=== PATIENT | male | born 1970 | race Caucasian/White ===

== ENCOUNTER 2017-01-27 19:13 | Observation (INO) | payer OTHER ==
[2017-01-27 19:34] VITALS: BMI 22.9
--- NOTE | 2017-01-27 19:40 | ED PDOC ---
Arrival/HPI - General Time Seen by Provider: 01/27/17 19:14 Historian: Patient - History of Present Illness Narrative History of Present Illness (Text): 01/27/17 19:40 A 46 year old male, whose past medical history includes EtOH abuse, presents to the emergency department complaining of chest pain. Patient reports also experiencing an episode of vomiting earlier, possibly consisting tinge of blood and food. Patient admits to drinking earlier today. He denies of any shortness of breath, abdominal pain, diarrhea, or any other complaints. Also, according to family, patient drinks daily. PMD: Dr. Homer Kyle Past Medical History - Provider Review Nursing Documentation Reviewed: Yes Family/Social History - Physician Review Nursing Documentation Reviewed: Yes Family/Social History: No Known Family HX Allergies/Home Meds Allergies/Adverse Reactions: Allergies No Known Allergies Allergy (Verified 01/27/17 19:34) Home Medications: Home Meds Medication Instructions Recorded Confirmed No Known Home Med 01/27/17 01/27/17 Review of Systems - Physician Review All systems were reviewed & negative as marked: Yes - Review of Systems Respiratory: absent: SOB Cardiovascular: Chest Pain Gastrointestinal: Vomiting (episode earlier with tinge of blood and food). absent: Abdominal Pain, Diarrhea Physical Exam Vital Signs Temp Pulse Resp BP Pulse Ox 01/27/17 19:30 98.0 F 107 H 20 156/90 H 99 Pain Distress: None (no acute distress) Mental Status: Positive for: Alert and Oriented X 3 - Systems Exam Head: Present: Atraumatic, Normocephalic Pupils: Present: PERRL Extroacular Muscles: Present: EOMI Conjunctiva: Present: Normal Mouth: Present: Moist Mucous Membranes Neck: Present: Normal Range of Motion Respiratory/Chest: Present: Clear to Auscultation, Good Air Exchange. No: Respiratory Distress, Accessory Muscle Use Cardiovascular: Present: Regular Rate and Rhythm, Normal S1, S2. No: Murmurs Abdomen: Present: Normal Bowel Sounds. No: Tenderness, Distention, Peritoneal Signs Back: Present: Normal Inspection Upper Extremity: Present: Normal Inspection. No: Cyanosis, Edema Lower Extremity: Present: Normal Inspection. No: Edema Neurological: Present: GCS=15, CN II-XII Intact, Speech Normal Skin: Present: Warm, Dry, Normal Color. No: Rashes Psychiatric: Present: Alert, Oriented x 3, Normal Insight, Normal Concentration Medical Decision Making ED Course and Treatment: 01/27/17 19:43 Impression: 46 year old male with chest pain. Physical exam benign. Plan: -- EKG -- Chest X-ray -- Labs -- Nasal Cannula -- Reassess and disposition Progress Notes: EKG: Ordered, reviewed, and independently interpreted the EKG. Rate : 99 BPM Rhythm : NSR Interpretation : No ST-segment elevations or depressions, no T-wave inversions, normal intervals. Comparison : No previous EKG for comparison. 01/27/17 21:34 Chest X-ray is negative. - Lab Interpretations Lab Results: 01/27/17 19:30 01/27/17 19:30 Lab Results 01/27/17 20:00: Alcohol, Quantitative 299 H 01/27/17 19:30: Sodium 143, Potassium 4.2, Chloride 98, Carbon Dioxide 22, Anion Gap 27 H, BUN 16, Creatinine 0.8, Est GFR ( Amer) > 60, Est GFR ( Non-Af Amer) > 60, Random Glucose 114 H, Calcium 8.9, Total Bilirubin 0.4, AST 51, ALT 48, Alkaline Phosphatase 88, Lactate Dehydrogenase 477, Total Creatine Kinase 67, Troponin I < 0.01, Total Protein 8.3, Albumin 4.8, Globulin 3.5, Albumin/Globulin Ratio 1.4, Lipase 113 01/27/17 19:30: PT 10.2, INR 0.94, APTT 24.9 01/27/17 19:30: WBC 10.5, RBC 5.43, Hgb 15.3, Hct 44.3, MCV 81.6, MCH 28.2, MCHC 34.5, RDW 13.3, Plt Count 333, MPV 9.3, Gran % 70.5 H, Lymph % (Auto) 22.9 , Childress % (Auto) 6.5 H, Eos % (Auto) 0.0 L, Baso % (Auto) 0.1, Gran # 7.37 H, Lymph # 2.4, Childress # 0.7 H, Eos # 0.0, Baso # 0.01 - RAD Interpretation Radiology Orders: 01/27/17 19:50 CHEST PORTABLE [RAD] Stat - Medication Orders Current Medication Orders: Discontinued Medications Famotidine (Pepcid) 20 mg IVP STAT STA Stop: 01/27/17 19:52 Last Admin: 01/27/17 20:09 Dose: 20 mg IVP Administration Document 01/27/17 20:09 SC (Rec: 01/27/17 20:09 SC [id number]) Charges for Administration # of IVP Administrations 1 Morphine Sulfate (Morphine) 2 mg IVP STAT STA Stop: 01/27/17 21:40 Last Admin: 01/27/17 22:00 Dose: 2 mg MAR Pain Assessment Document 01/27/17 22:00 SC (Rec: 01/27/17 22:00 SC [id number]) Pain Reassessment Is this a pain reassessment? Yes Sleep Is patient sleeping during reassessment? No Presence of Pain Presence of Pain Yes Pain Scale Used Pain Scale Used Numeric Location Pain Location Body Site Chest Description Description Constant Intensity of Pain at present 6 IVP Administration Document 01/27/17 22:00 SC (Rec: 01/27/17 22:00 SC [id number]) Charges for Administration # of IVP Administrations 1 Nitroglycerin (Nitro-Bid 2% Oint) 1 ea TOP ONCE STA Stop: 01/27/17 21:59 Ondansetron HCl (Zofran Inj) 4 mg IVP ONCE ONE Stop: 01/27/17 21:51 Last Admin: 01/27/17 22:00 Dose: 4 mg IVP Administration Document 01/27/17 22:00 SC (Rec: 01/27/17 22:00 SC [id number]) Charges for Administration # of IVP Administrations 1 - Scribe Statement The provider has reviewed the documentation as recorded by the Shade Johnson Provider Scribe Attestation: All medical record entries made by the Scribcandelaria were at my direction and personally dictated by me. I have reviewed the chart and agree that the record accurately reflects my personal performance of the history, physical exam, medical decision making, and the department course for this patient. I have also personally directed, reviewed, and agree with the discharge instructions and disposition. Disposition/Present on Arrival - Present on Arrival Any Indicators Present on Arrival: No History of DVT/PE: No History of Uncontrolled Diabetes: No Urinary Catheter: No History of Decub. Ulcer: No History Surgical Site Infection Following: None - Disposition Have Diagnosis and Disposition been Completed?: Yes Diagnosis: Chest pain, Alcohol intoxication Disposition: HOSPITALIZED Disposition Time: 22:05 Patient Plan: Observation Condition: STABLE Discharge Instructions (ExitCare): Chest Pain (ED) Referrals: Homer Kyle MD [Primary Care Provider] - Follow up with primary
[2017-01-27 20:03] LABS: BASO # 0.01 K/mm3 (0.0-2.0); BASO % 0.1 % (0.0-3.0); GRAN # 7.37 (1.4-6.5); GRAN % 70.5 % (50.0-68.0); HEMATOCRIT 44.3 % (42.0-52.0); LYMPH # 2.4 (1.2-3.4); LYMPH % 22.9 % (22.0-35.0); MEAN CELL VOLUME 81.6 fl (80.0-105.0); MEAN CORPUSCULAR HEMOGLOBIN 28.2 pg (25.0-35.0); MEAN CORPUSCULAR HGB CONC 34.5 g/dl (31.0-37.0); MEAN PLATELET VOLUME 9.3 fl (7.0-11.0); MONO # 0.7 (0.1-0.6); MONO % 6.5 % (1.0-6.0); RED CELL DISTRIBUTION WIDTH 13.3 % (11.5-14.5); WHITE BLOOD COUNT 10.5 10^3/ul (4.5-11.0)
[2017-01-27 20:14] LABS: INR 0.94 (0.93-1.08); PARTIAL THROMBOPLASTIN TIME 24.9 Seconds (23.7-30.8)
[2017-01-27 20:15] LABS: ALB/GLOB RATIO 1.4 (1.1-1.8); ALKALINE PHOSPHATASE 88 U/L (38-126); ALT/SGPT 48 U/L (7-56); AST/SGOT 51 U/L (17-59); BILIRUBIN,TOTAL 0.4 mg/dL (0.2-1.3); BLOOD UREA NITROGEN 16 mg/dL (7-21); CALCIUM 8.9 mg/dL (8.4-10.5); CARBON DIOXIDE 22 mmol/L (21-33); CHLORIDE 98 mmol/L (98-107); GFR AFRICAN-AMERICAN > 60; GLUCOSE,RANDOM 114 mg/dL (70-110); LIPASE 113 U/L (23-300); POTASSIUM 4.2 mmol/L (3.6-5.0); SODIUM 143 mmol/L (132-148); TOTAL PROTEIN 8.3 g/dL (5.8-8.3)
[2017-01-27 20:28] LABS: TROPONIN I < 0.01 ng/mL
[2017-01-27] MEDS ORDERED: Morphine 2 mg/ml ISec IVP STA (21:39)
[2017-01-27] MEDS ORDERED: Nitroglycerin 2% Ointment Foilpak UD TOP STA (21:58)
[2017-01-28] MEDS: Folic Acid 1 MG, Thiamine 100 MG, Multivitamin (MVI) 10 ML in Dextrose 5% In Water 1,00... IV SCH ×3 (02:25→14:44)
[2017-01-28 04:36] LABS: TROPONIN I < 0.01 ng/mL
--- NOTE | 2017-01-28 08:10 | RAD ---
HISTORY: chest pain COMPARISON: None available. FINDINGS: LUNGS: No active pulmonary disease. PLEURA: No significant pleural effusion identified, no pneumothorax apparent. CARDIOVASCULAR: Normal. OSSEOUS STRUCTURES: No significant abnormalities. VISUALIZED UPPER ABDOMEN: Normal. OTHER FINDINGS: None. IMPRESSION: No acute cardiopulmonary disease appreciated.
[2017-01-28] MEDS ORDERED: Albuterol-Ipratrop 3 mg / 0.5 (3 ml) UD IH PRN (08:45)
[2017-01-28] MEDS: Benzocaine/Menthol (Cepacol) Lozenge MT PRN ×2 (09:31→17:33)
[2017-01-28] MEDS: cefTRIAXone 1 gm 1 GM/100 ML BAG IVPB SCH (09:31)
[2017-01-28 11:48] LABS: CHOLESTEROL 227 mg/dL (130-200); PHOSPHOROUS 2.2 mg/dL (2.5-4.5)
[2017-01-28 12:05] LABS: TROPONIN I < 0.01 ng/mL
--- NOTE | 2017-01-28 12:31 | CARD ---
APPROVED REPORT EKG Measurement Heart [id number] <Conclusion> Normal sinus rhythm Normal ECG
[2017-01-28] MEDS: Potassium & Sodium Phosphate PO SCH ×2 (14:48→17:31)
--- NOTE | 2017-01-28 19:20 | PN ---
REASON FOR THE CONSULTATION: Chest pain after vomiting, history of EtOH abuse, admitted with alcoholic intoxication. 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 He used to drink heavy and he drank yesterday heavy. Blood alcohol level 300, since started vomiting and developed abdominal pain associated with chest pain on vomiting. Denies any chest pain, dyspnea on exertion. Denies any history of coronary artery disease in the past. PAST MEDICAL HISTORY: Nothing significant. SOCIAL HISTORY: Denies any history of smoking, but history of alcohol abuse. FAMILY HISTORY: Noncontributory. No history of coronary artery disease. CURRENT MEDICATIONS: None. REVIEW OF SYSTEMS: As per HPI. PHYSICAL EXAMINATION: VITAL SIGNS: As follows; temperature afebrile, heart rate 106, blood pressure 135/82. HEENT: PERRLA. Extraocular muscle is intact. NECK: Supple. No carotid bruit. No thyromegaly. CHEST: Clear to auscultation. HEART: S1 and S2 regular. ABDOMEN: Soft. Mild tenderness in left upper quadrant noted under the rib. EXTREMITIES: Clubbing and cyanosis negative. DIAGNOSTIC DATA: EKG showed normal sinus rate of [address]-T changes noted. LABORATORY DATA: Blood workup as follows; WBC 11.9, hemoglobin 15.3, hematocrit 44.3, and platelet count 333. Chemistry showed sodium 146, potassium 4.2, chloride 90, carbon dioxide 20, anion gap of 27, BUN 16, creatinine 0.8, magnesium 2, phosphorous 2.2. Troponin 0.01. TSH is 1.0. Blood alcohol level on admission was 299. IMPRESSION: Acute alcoholic intoxication, chest pain, no evidence of acute myocardial infarction. EKG reported benign, no evidence of acute myocardial infarction. RECOMMENDATIONS: We will add third sets of troponin. If third set of troponin remains negative, we will discontinue telemetry. We will get the lipid profile, TSH and hemoglobin A1c. We will also schedule magnesium and phosphorous level, if it is elevated, we will supplement. Thank you Dr. Fernandez for providing me the opportunity in taking care of the patient. Lloyd Crabtree MD
[2017-01-28] MEDS: Sucralfate 1 gm/10 ml Oral Susp UD PO SCH (21:20)
--- NOTE | 2017-01-28 21:37 | CON ---
PULMONARY CONSULTATION DATE: 01/28/2017 REFERRING PHYSICIAN: Yen Fernandez MD REASON FOR CONSULTATION: Chest pain. HISTORY OF PRESENT ILLNESS: This is a 46-year-old gentleman, past medical history include excessive alcohol use, comes in with a chest pain, epigastric pain, also has a dry cough. Denies any dysuria. No leg pain or leg swelling. PAST MEDICAL HISTORY: Significant for excessive alcohol use. No heart disease. No lung disease. No kidney disease. No dysuria. No diarrhea. No leg pain or leg swelling. ALLERGIES: NONE KNOWN. SOCIAL HISTORY: Denies any smoking. Admits to drink whisky on a daily basis. MEDICATIONS: Presently he is on Ativan 1 mg q. 6 hours p.r.n., Cepacol lozenges q. 2 hours p.r.n., albuterol/Atrovent nebulizer q. 6 hours p.r.n., getting a banana bag 30 mL/hour, K-Phos one pack three times a day, Pepcid 20 mg daily, Rocephin 1 g IV daily, Tylenol p.r.n. basis, and Zofran p.r.n. basis. REVIEW OF SYSTEMS: No headache. No rhinitis, does have some dry cough, chest pain, and epigastric pain. Abdominal discomfort. No dysuria. No leg pain or leg swelling. PHYSICAL EXAMINATION: GENERAL: Lying in the bed, in no acute distress. VITAL SIGNS: Temperature is 99, heart rate is 105, respiratory rate is 20, blood pressure is 135/82, and pulse ox is 95% on room air. HEENT: Moist mucous membranes. Crowded airway. NECK: Supple. No JVD. LUNGS: Fair airflow. HEART: S1 and S2. ABDOMEN: Positive epigastric tenderness. EXTREMITIES: There is no edema. NEUROLOGIC: Awake and alert. Follows simple commands. LABORATORY DATA: Shows hemoglobin 15.3, hematocrit 44.3, WBC 10.5, and platelet is 333. INR 0.94. Sodium 143, potassium 4.2, chloride 90, bicarbonate 22, BUN 16, creatinine 0.8, and glucose 104. Hemoglobin A1c 5.4. Calcium 8.9, phosphorous 2.2, and magnesium 2.0. LDH is 302. Troponin less than 0.01. Cholesterol 227 and TSH 1.03. IMPRESSION AND PLAN: Alcohol abuse, probably has gastritis, esophagitis, and gastroesophageal reflux disease. Cough may be related to gastroesophageal reflux disease. For now, continue IV fluids, banana bag, Ativan p.r.n., proton inhibitor, SCD to lower extremities. Alcohol withdrawal precautions. Followup labs in the morning. The patient has to stop alcohol use. Thank you and we will follow. Lloyd Varela MD
--- NOTE | 2017-01-28 23:34 | HP ---
CHIEF COMPLAINT: Chest pain, shortness of breath. HISTORY OF PRESENT ILLNESS: Mr. Dante Cook is a 46 years old male with past medical history of ethanol abuse, came to the emergency room department complaining of chest pain. The patient reports that he also experiences episode of vomiting, possibly consistent of tinge of blood and food. The patient admits to drinking earlier on the day of admission. He denies any fever, chills, diarrhea, abdominal pain, chest pain and according to the patient, he drinks everyday. PAST MEDICAL HISTORY: Nonsignificant. ALLERGIES: NOT ALLERGIC WITH ANY MEDICATION. FAMILY HISTORY: Father and mother noncontributory. HABITS: No smoking, no drugs, but drinks. HOME MEDICATIONS: Does not remember. REVIEW OF SYSTEMS: Complaining about chest pain, vomiting, may be blood in the vomiting. No abdominal pain,no diarrhea. No headache. No dizziness. No fever. No chills. PHYSICAL EXAMINATION: VITAL SIGNS: Temperature 98, pulse 107, respiratory rate 20, blood pressure 156/90, pulse oxymetry is 99. HEENT: Head is normocephalic, atraumatic. Eyes, PERRLA. Extraocular muscles intact. Conjunctivae clear. Nose patent. Mucous membranes moist. NECK: Supple. No carotid bruits. No JVD or thyromegaly. CHEST: Bilaterally symmetrical. HEART: S1 and S2 positive. LUNGS: Clear to auscultation. ABDOMEN: Soft. Bowel sounds positive. No organomegaly. EXTREMITIES: No edema. No cyanosis. NEUROLOGIC: The patient is awake, alert. Moving all four extremities. No focal deficit. LABORATORY DATA: White blood cells 7.5, hemoglobin 15.3, hematocrit 44.3, platelets 333. Sodium 143, potassium 4.2, BUN 15, creatinine 0.8, glucose 114. ASSESSMENT AND PLAN: Mr. Dante Cook is a 46 years old male with a history of ethanol abuse, but may be had the gastritis, esophagitis, gastroesophageal reflux disease, came with chest pain, shortness of breath. We started the patient with banana bag, Ativan, proton pump inhibitors, sequential compression device to lower extremities, alcohol withdrawal precautions, seizure precautions, fall precautions, urged to quit alcohol. Review Dr. Varela and Dr. Crabtree notes. Actually came with acute alcohol intoxication. According to tapeman, no evidence of acute myocardial infarction. Electrocardiogram report benign. No evidence of acute myocardial infarction. We will do 3 sets of troponin. If troponin remains negative as per cardiology, discontinue the telemetry. We will get fasting lipid profile, thyroid-stimulating hormone, and hemoglobin A1c. We will fix the left leg to balance. three sets of troponin is negative. That is why, telemetry was discontinued. The patient has hypercholesterolemia, 227. We will add some Lipitor. We will do hemoglobin A1c because of hyperglycemia, hypophosphatemia. We will replace that. According to the patient, there was little blood in the vomitus also. We will call gastroenterology consult. We will follow up. Yen Fernandez MD MTDD
[2017-01-29] MEDS: Benzocaine/Menthol (Cepacol) Lozenge MT PRN ×2 (06:56→21:36)
[2017-01-29] MEDS: Sucralfate 1 gm/10 ml Oral Susp UD PO SCH ×3 (06:56→17:01)
[2017-01-29] MEDS: cefTRIAXone 1 gm 1 GM/100 ML BAG IVPB SCH (09:53)
[2017-01-29] MEDS: Potassium & Sodium Phosphate PO SCH ×3 (09:54→17:01)
--- NOTE | 2017-01-29 10:34 | PN ---
DATE: 01/29/2017 LOCATION: The patient is in room 570, bed 1. REASON FOR CONSULTATION: Chest pain after vomiting, history of ethanol abuse, and alcohol intoxication. SUBJECTIVE: The patient is lying flat in bed without any respiratory distress. He says that when he coughs, he gets sharp pain, otherwise he has no chest pain. Denies shortness of breath, or palpitations. PHYSICAL EXAMINATION VITAL SIGNS: Blood pressure 132/85, respirations 20, pulse 81, and temperature 98.5. HEENT: Head is normocephalic. Eyes; pupil normal and conjunctivae are normal. Nose and throat are normal. NECK: JVP low and carotids are equal. Thorax AP diameter is normal. LUNGS: No rales. CARDIOVASCULAR: S1 and S2. ABDOMEN: Soft and nontender. No organomegaly. EXTREMITIES: No clubbing and no cyanosis. LABORATORY DATA: Alcohol level on admission was 299. WBC 10.5, hemoglobin 13.3, hematocrit 44.3, and platelets 333. Sodium is 143, potassium 4.2, BUN 16, and creatinine 0.8. Troponin x3 is less than 0.01. TSH 1.03, cholesterol 227, triglycerides 149, and HDL 71. DIAGNOSES: Acute alcoholic intoxication, chest pain with cough. PLAN: The patient has no evidence of acute coronary syndrome or any anginal symptom. The patient has no history of any anginal symptoms in the past. Phosphorus level 2.2. We will give K-Phos. We will continue present therapy. We will follow with you. Lloyd Mtz MD
--- NOTE | 2017-01-29 12:10 | CP.PCM.CON ---
<Candace Holliday - Last Filed: 01/29/17 17:09> History of Present Illness - History of Present Illness History of Present Illness: Patient was seen and examined earlier today at the bedside. Chart was reviewed. Request for GI consult is for vomiting blood. HPI: This is a 46-year-old male with a past medical history of ethanol abuse came to the emergency room with complaints of chest pain. The patient also reports vomiting and noted that it was blood-tinged. Patient currently complains of sore throat and coughing. He has not had any episode of hematemesis. Patient denies any previous history of hematemesis. He reports that he has been drinking daily at least 1 pint of whiskey for the past year. Denies any heartburn, shortness of breath or chest pain. The patient reports regular bowel movements, denies any melena or bright red blood per rectum. Denies any anorexia or weight loss. Had endoscopy or colonoscopy. On admission he had cardiac enzymes which were negative3. He did have a chest x- ray as well which was negative for any acute findings. He does report of postprandial nausea, had episode after breakfast, but no vomiting. Past medical history:ethanol abuse, Patient denies any cardiac, pulmonary, or pertinent history Surgical history: Surgery, hemorrhoidectomy Family history: Denies Social history: consumes whiskey daily for the past year, he did stop 2 or 3 years ago. Denies tobacco use or substance abuse Allergies: No known drug allergies Medications: Medications reviewed as per CONNIE ROS: Systems review. Positive findings see HPI. Past Patient History - Past Social History Smoking Status: Never Smoked - CARDIAC Hx Cardiac Disorders: No - PULMONARY Hx Respiratory Disorders: No - NEUROLOGICAL Hx Neurological Disorder: Yes Hx Dizziness: No - HEENT Hx HEENT Problems: Yes Other/Comment: reading glasses - RENAL Hx Chronic Kidney Disease: No - ENDOCRINE/METABOLIC Hx Endocrine Disorders: No - HEMATOLOGICAL/ONCOLOGICAL Hx Blood Disorders: No - INTEGUMENTARY Hx Dermatological Problems: No - MUSCULOSKELETAL/RHEUMATOLOGICAL Hx Musculoskeletal Disorders: Yes Hx Back Pain: Yes Hx Falls: No Other/Comment: back surgery 10 yrs ago - GASTROINTESTINAL Hx Gastrointestinal Disorders: Yes Other/Comment: nausea/vomiting in past day - GENITOURINARY/GYNECOLOGICAL Hx Genitourinary Disorders: No - PSYCHIATRIC Hx Psychophysiologic Disorder: No Hx Substance Use: No - SURGICAL HISTORY Hx Surgeries: Yes Other/Comment: back surgery; hemorrhoid surgery Meds Allergies/Adverse Reactions: Allergies Allergy/AdvReac Type Severity Reaction Status Date / Time No Known Allergies Allergy Verified 01/27/17 19:34 - Medications Medications: Current Medications Acetaminophen (Tylenol 325mg Tab) 650 mg PO Q6H PRN PRN Reason: Pain Last Admin: 01/28/17 17:33 Dose: 650 mg Albuterol/Ipratropium (Duoneb 3 Mg/0.5 Mg (3 Ml) Ud) 3 ml IH [id number] PRN PRN Reason: Shortness of Breath Last Admin: 01/28/17 08:58 Dose: 3 ml Atorvastatin Calcium (Lipitor) 10 mg PO DIN [facility] Benzocaine/Menthol (Cepacol Sore Throat) 1 clover MT Q2H PRN PRN Reason: Sore Throat Last Admin: 01/29/17 06:56 Dose: 1 clover Folic Acid 1 mg/ Thiamine HCl 100 mg/ Multivitamins/Vitamin C 10 ml/ Dextrose 1 ,011.2 mls @ 100 mls/hr IV .Q10H7M [facility] Last Admin: 01/28/17 14:44 Dose: 100 mls/hr Ceftriaxone Sodium (Rocephin 1 Gram Ivpb) 1 gm in 100 mls @ 100 mls/hr IVPB DAILY [facility] PRN Reason: Protocol Last Admin: 01/29/17 09:53 Dose: 100 mls/hr Lorazepam (Ativan) 1 mg IVP Q6 PRN; Protocol PRN Reason: Agitation Last Admin: 01/28/17 18:57 Dose: 1 mg Ondansetron HCl (Zofran Inj) 4 mg IVP Q6 PRN PRN Reason: Nausea/Vomiting Pantoprazole Sodium (Protonix Inj) 40 mg IVP DAILY [facility] Last Admin: 01/29/17 10:47 Dose: 40 mg Potassium Phos/Sodium Phos (Neutra-Phos) 1 pkt PO TID [facility] Stop: 01/29/17 23:00 Last Admin: 01/29/17 09:54 Dose: 1 pkt Sucralfate (Carafate Oral Susp) 1 gm PO 0630,1130,1630,2200 [facility] Last Admin: 01/29/17 10:48 Dose: 1 gm Physical Exam - Constitutional Appears: No Acute Distress - Head Exam Head Exam: NORMOCEPHALIC - Eye Exam Eye Exam: Normal appearance. absent: Scleral icterus - ENT Exam ENT Exam: Mucous Membranes Moist - Neck Exam Neck exam: Positive for: Normal Inspection - Respiratory Exam Respiratory Exam: Clear to Auscultation Bilateral, NORMAL BREATHING PATTERN. absent: Respiratory Distress - Cardiovascular Exam Cardiovascular Exam: +S1, +S2 - GI/Abdominal Exam GI & Abdominal Exam: Soft, Tenderness (epigastric). absent: Distended, Guarding , Normal Bowel Sounds, Rebound - Extremities Exam Extremities exam: Positive for: pedal pulses present. Negative for: calf tenderness, pedal edema - Neurological Exam Neurological exam: Alert, CN II-XII Intact, Oriented x3 - Skin Skin Exam: Dry, Warm Results - Vital Signs Recent Vital Signs: Last Vital Signs Temp 98.5 F 01/29/17 08:00 Pulse 81 01/29/17 08:00 Resp 20 01/29/17 08:00 BP 132/85 01/29/17 08:00 Pulse Ox 97 01/29/17 08:00 - Labs Result Diagrams: 01/27/17 19:30 01/27/17 19:30 Assessment & Plan - Assessment and Plan (Free Text) Assessment: ASSESSMENT: Hematemesis, differential to consider PUD, Gastritis Chest Pain Coughing Ethanol Abuse, Alcohol Quant >200 PLAN: clear liquid on IVF, w/ MVI start Protonix Ativan prn agitation monitor H/H, overt GI bleeding monitor for alcohol withdrawal Would benefit from EGD, plan for 01/30/17 On Carafate on Ceftriaxone labs in am cbc,cmp Thank you for this consult and for allowing us to participate in your patient care, will make further recommendaiton based upon clinical course. Seen and discussed with Dr. Welsh. <Branden Welsh V - Last Filed: 01/29/17 20:00> Meds - Medications Medications: Current Medications Acetaminophen (Tylenol 325mg Tab) 650 mg PO Q6H PRN PRN Reason: Pain Last Admin: 01/28/17 17:33 Dose: 650 mg Albuterol/Ipratropium (Duoneb 3 Mg/0.5 Mg (3 Ml) Ud) 3 ml IH [id number] PRN PRN Reason: Shortness of Breath Last Admin: 01/28/17 08:58 Dose: 3 ml Atorvastatin Calcium (Lipitor) 10 mg PO DIN [facility] Last Admin: 01/29/17 16:29 Dose: Not Given Benzocaine/Menthol (Cepacol Sore Throat) 1 clover MT Q2H PRN PRN Reason: Sore Throat Last Admin: 01/29/17 06:56 Dose: 1 clover Folic Acid 1 mg/ Thiamine HCl 100 mg/ Multivitamins/Vitamin C 10 ml/ Dextrose 1 ,011.2 mls @ 100 mls/hr IV .Q10H7M [facility] Last Admin: 01/29/17 13:00 Dose: 100 mls/hr Ceftriaxone Sodium (Rocephin 1 Gram Ivpb) 1 gm in 100 mls @ 100 mls/hr IVPB DAILY [facility] PRN Reason: Protocol Last Admin: 01/29/17 09:53 Dose: 100 mls/hr Lorazepam (Ativan) 1 mg IVP Q6 PRN; Protocol PRN Reason: Agitation Last Admin: 01/28/17 18:57 Dose: 1 mg Ondansetron HCl (Zofran Inj) 4 mg IVP Q6 PRN PRN Reason: Nausea/Vomiting Pantoprazole Sodium (Protonix Inj) 40 mg IVP DAILY [facility] Last Admin: 01/29/17 10:47 Dose: 40 mg Potassium Phos/Sodium Phos (Neutra-Phos) 1 pkt PO TID [facility] Stop: 01/29/17 23:00 Last Admin: 01/29/17 17:01 Dose: 1 pkt Sucralfate (Carafate Oral Susp) 1 gm PO 0630,1130,1630,2200 [facility] Last Admin: 01/29/17 17:01 Dose: 1 gm Zolpidem Tartrate (Ambien) 10 mg PO HS PRN; Protocol PRN Reason: Insomnia Results - Vital Signs Recent Vital Signs: Last Vital Signs Temp 98.7 F 01/29/17 16:00 Pulse 70 01/29/17 16:00 Resp 18 01/29/17 16:00 BP 131/88 01/29/17 16:00 Pulse Ox 98 01/29/17 16:00 - Labs Result Diagrams: 01/27/17 19:30 01/27/17 19:30 Attending/Attestation - Attestation Notes (Text): This is an addendum to GI consult report dictated by Candace Holliday APN.The patient was seen and examined earlier. Medical records, lab studies, imagings were reviewed. Last 24 hours events reviewed. Agreed with the above treatment plan as outlined in Candace Holliday APN's notes the with the addition of the following on examination abdomen soft no tenderness No further episodes of hematemesis The differential diagnoses should include a Haley-Martínez tear, esophagitis, peptic disease, We'll DC the Carafate as it can interfere with endoscopy evaluation Follow-up hemoglobin hematocrit Continue PPI Scheduled for an EGD tomorrow Strongly discouraged him about alcohol 01/29/17 19:57
[2017-01-29] MEDS: Folic Acid 1 MG, Thiamine 100 MG, Multivitamin (MVI) 10 ML in Dextrose 5% In Water 1,00... IV SCH (13:00)
[2017-01-30] MEDS: Folic Acid 1 MG, Thiamine 100 MG, Multivitamin (MVI) 10 ML in Dextrose 5% In Water 1,00... IV SCH ×3 (01:15→18:08)
--- NOTE | 2017-01-30 02:27 | PN ---
PULMONARY PROGRESS NOTE DATE: 01/29/2017 REFERRING PHYSICIAN: Yen Fernandez MD SUBJECTIVE: Subjectively, the patient is sitting side of the bed, having clear liquid diet. Overall feels better. Still have some cough. No chest pain. Still have abdominal discomfort. No nausea. No dysuria, leg pain or leg swelling. PHYSICAL EXAMINATION: GENERAL: In no acute distress. VITAL SIGNS: Temperature is 98, heart rate is 70, respiratory rate is 20, blood pressure 131/88, and pulse ox 98% on room air. HEENT: Moist mucous membranes. Crowded airway. NECK: Supple. No JVD. LUNGS: Has a fair airflow with few rhonchi. HEART: S1 and S2. ABDOMEN: Positive epigastric tenderness. EXTREMITIES: No edema. NEUROLOGIC: Awake and alert. Follows simple commands. MEDICATIONS: He is on Ambien 10 mg at bedtime p.r.n., Ativan 1 mg q. 6 hours p.r.n., Cepacol lozenges q. 2 hours p.r.n., DuoNeb q. 6 hours, getting folic acid, thiamine, multivitamin, vitamin C, banana bag 100 mL/hour, Lipitor 10 mg daily, Neutra-Phos 1 pack 3 times a day, Protonix 40 mg daily, Rocephin 1 g daily, Tylenol p.r.n., and Zofran p.r.n. LABORATORY DATA: Reviewed. No new lab is available since yesterday. IMPRESSION AND PLAN: Alcohol abuse with gastritis and esophagitis, also probably have a gastroesophageal reflux disease, related cough, need to rule out sleep apnea. Pulmonary point of view, doing okay. Continue present care, IV fluids, proton inhibitor, seen by GI. The patient is to stop smoking also urged to stop alcohol. Outpatient may need sleep study. Thank you and we will follow with you. Lloyd Varela MD
--- NOTE | 2017-01-30 06:05 | CARD ---
APPROVED REPORT EXAM: Two-dimensional and M-mode echocardiogram with Doppler and color Doppler. INDICATION Chest Pain 2D DIMENSIONS Left Atrium (2D)3.4 (1.6-4.0cm)IVSd1.3 (0.7-1.1cm) LVDd4.2 (3.9-5.9cm)PWd1.1 (0.7-1.1cm) LVDs2.8 (2.5-4.0cm)FS (%) 32.9 % LVEF (%)61.8 (>50%) M-Mode DIMENSIONS Aortic Root3.00 (2.2-3.7cm)Aortic Cusp Exc.1.90 (1.5-2.0cm) Aortic Valve AoV Peak Qxkpejtz733.0cm/Jonn Peak GR.6mmHg Mitral Valve MV E Ewyhlmnk03.3cm/sMV A Iamqxgrw12.5cm/sE/A ratio0.8 TDI E/Lateral E'0.0E/Medial E'0.0 Tricuspid Valve TR Peak Wqyajppx990sr/sRAP [id number] Peak Gr.9mmHg [id number] LEFT VENTRICLE The left ventricle is normal size. There is mild asymmetric left ventricular hypertrophy. The left ventricular function is normal.EF55-60% There is normal LV segmental wall motion. Transmitral Doppler flow pattern is Grade III-reversible restrictive diastolic dysfunction. No left ventricle thrombus noted on this study. There is no ventricular septal defect visualized. There is no left ventricular aneurysm. There is no mass noted in the left ventricle. RIGHT VENTRICLE The right ventricle is normal size. There is normal right ventricular wall thickness. The right ventricular systolic function is normal. ATRIA The left atrium size is normal. The right atrium size is normal. The interatrial septum is intact with no evidence for an atrial septal defect. AORTIC VALVE The aortic valve is normal in structure. No aortic regurgitation is present. There is no aortic valvular stenosis. There is no aortic valvular vegetation. MITRAL VALVE The mitral valve is normal in structure. There is no mitral valve regurgitation noted. There is no mitral valve stenosis. There is no evidence of mitral valve prolapse. TRICUSPID VALVE The tricuspid valve is normal in structure. There is no tricuspid valve regurgitation noted.RVSP-19 mmof hg There is no tricuspid valve stenosis. There is no tricuspid valve prolapse or vegetation. PULMONIC VALVE The pulmonary valve is normal in structure. There is no pulmonic valvular regurgitation. There is no pulmonic valvular stenosis. GREAT VESSELS The aortic root is normal in size. The ascending aorta is normal in size. The pulmonary artery is normal. The IVC is normal in size and collapses >50% with inspiration. PERICARDIAL EFFUSION There is no pleural effusion. There is no pericardial effusion. <Conclusion> Normal chamber Size. Ef-55-60% Trace Tr. RVSP_19 mmof hg The IVC is normal in size and collapses >50% with inspiration. The IVC is normal in size and collapses >50% with inspiration. There is no pericardial effusion.
--- NOTE | 2017-01-30 06:17 | PN ---
SUBJECTIVE: The patient is a 46 years old male. The patient is seen and examined on the bedside. Looking comfortable. Still having sore throat. Still coughing. According to the patient, he cannot sleep last night, was requesting sleeping medication. No nausea, vomiting, or diarrhea. No chest pain or palpitations. No more episodes of vomiting. PHYSICAL EXAMINATION: VITAL SIGNS: Temperature 98.7, pulse 70, blood pressure 130/88, and respiratory rate 18. HEENT: Head, normocephalic, and atraumatic. Eyes, PERRLA. Extraocular muscles intact. Conjunctivae clear. Nose patent. NECK: Supple. No carotid bruits. No JVD or thyromegaly. CHEST: Bilaterally symmetrical. HEART: S1 and S2 positive. LUNGS: Clear to auscultation. ABDOMEN: Soft. Bowel sounds positive. No organomegaly. EXTREMITIES: No edema. No cyanosis. NEUROLOGICAL: The patient is awake and alert. Moving all 4 extremities. No focal deficits. MEDICATIONS: Ambien, Ativan, Cepacol lozenges, DuoNeb, multivitamin, Lipitor, Neutra-Phos, Protonix, Rocephin, Tylenol, and Zofran. LABORATORY DATA: We do not have recent labs today, but I reviewed old labs. ASSESSMENT AND PLAN: Mr. Dante Cook is a 46 years old male with hyperglycemia, hypophosphatemia, hypercholesterolemia, came with alcohol level of 299, almost 300, with alcohol intoxication with episode of nausea and vomiting with blood. Seen by Gastroenterology, JOHNNA Thomas. History of ethanol abuse, history of hematemesis, rule out peptic ulcer disease, and gastritis. The patient is on clear liquid, intravenous fluid, multivitamin infusion, getting Protonix, and Ativan p.r.n. for agitation, monitoring hemoglobin and hematocrit. Admitted for overt gastrointestinal bleeding , for alcohol withdrawals. Would benefit from esophagogastroduodenoscopy. Plan is to do esophagogastroduodenoscopy on 01/30/2017, on Carafate and ceftriaxone. 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 Dr. Welsh discontinued the Carafate as it interferes with the endoscopic evaluation. He is scheduled esophagogastroduodenoscopy for tomorrow. Agreed to quit alcohol. Pharyngitis and coughing, getting antibiotics. According to Dr. Mtz, there is no evidence of acute coronary syndrome or any anginal symptoms. Hypophosphatemia, Dr. Mtz did give phosphorus. Seen by Dr. Varela, Aerologist. According to Dr. Varela, cough may be related to gastroesophageal reflux disease. Sequential compression devices to lower extremities. Seizure precautions. Gastrointestinal and deep venous thrombosis prophylaxis. Repeat labs. We will follow. Yen Fernandez MD MTDD
[2017-01-30 07:22] LABS: BASO # 0.02 K/mm3 (0.0-2.0); BASO % 0.3 % (0.0-3.0); EOS # 0.3 (0.0-0.7); EOS % 3.7 % (1.5-5.0); GRAN # 5.04 (1.4-6.5); GRAN % 71.7 % (50.0-68.0); HEMATOCRIT 41.4 % (42.0-52.0); LYMPH # 1.4 (1.2-3.4); LYMPH % 19.9 % (22.0-35.0); MEAN CELL VOLUME 84.5 fl (80.0-105.0); MEAN CORPUSCULAR HEMOGLOBIN 27.1 pg (25.0-35.0); MEAN CORPUSCULAR HGB CONC 32.1 g/dl (31.0-37.0); MEAN PLATELET VOLUME 9.5 fl (7.0-11.0); MONO # 0.3 (0.1-0.6); MONO % 4.4 % (1.0-6.0); RED CELL DISTRIBUTION WIDTH 13.4 % (11.5-14.5)
[2017-01-30 08:12] LABS: ALB/GLOB RATIO 1.4 (1.1-1.8); ALKALINE PHOSPHATASE 68 U/L (38-126); ALT/SGPT 130 U/L (7-56); AST/SGOT 193 U/L (17-59); BILIRUBIN,TOTAL 1.1 mg/dL (0.2-1.3); BLOOD UREA NITROGEN 4 mg/dL (7-21); CARBON DIOXIDE 27 mmol/L (21-33); CHLORIDE 98 mmol/L (98-107); GFR AFRICAN-AMERICAN > 60; GLUCOSE,RANDOM 89 mg/dL (70-110); PHOSPHOROUS 4.1 mg/dL (2.5-4.5); POTASSIUM 3.8 mmol/L (3.6-5.0); SODIUM 138 mmol/L (132-148); TOTAL PROTEIN 6.9 g/dL (5.8-8.3)
[2017-01-30] MEDS: cefTRIAXone 1 gm 1 GM/100 ML BAG IVPB SCH (09:46)
--- NOTE | 2017-01-30 13:28 | PN ---
DATE: 01/30/2017 LOCATION: The patient in room #570, bed 1. REASON FOR CONSULTATION: Chest pain after vomiting, history of ethanol abuse and alcohol intoxication. SUBJECTIVE: The patient is lying flat in bed without any respiratory distress. He says that he still has cough, but it is much less than before. Denies any chest pain, shortness of breath or palpitations. PHYSICAL EXAMINATION VITAL SIGNS: Blood pressure 140/86, respirations 20, pulse 72 and temperature 98.7. HEENT: Head is normocephalic. Eyes: Pupils are normal. Conjunctivae normal. Nose and throat normal. NECK: JVP low. Carotids equal. THORAX: AP diameter normal. LUNGS: No significant rales. CARDIOVASCULAR: S1 and S2. ABDOMEN: Soft. No organomegaly. Bowel sounds normal. EXTREMITIES: No clubbing, no cyanosis. LABORATORY DATA: WBC 7.0, hemoglobin 13.3, hematocrit 41.4 and platelet 217. Sodium 138, potassium 3.8, BUN 4, creatinine 0.7, calcium 9.0, phosphorus 4.1, AST 193, ALT 130, total protein 6.9 and albumin 4.0. PT and INR normal. Echo on 01/29/2017 showed normal chamber sizes, LV ejection fraction 55% to 60%, trace tricuspid regurgitation, RSVP of 90 mmHg. DIAGNOSES: Acute alcoholic intoxication, chest pain with cough and earlier after vomiting. No evidence of acute coronary syndrome. PLAN: We will continue present therapy as the patient need to go to any procedure. From cardiac point of view, he can go and we are planning to do stress test as an outpatient later on to complete the cardiac workup. The patient is getting atorvastatin 10 mg daily, DuoNeb hand nebulizer therapy, Rocephin 1 g IV daily. We will continue present therapy. We will follow. Lloyd Mtz MD
[2017-01-30] MEDS ORDERED: Propofol 10 mg/ml Inj (20 ML) ONE (14:43)
[2017-01-30] MEDS ORDERED: Etomidate 20 mg/10ml Inj IV ONE (14:44)
[2017-01-30] MEDS ORDERED: Lidocaine 2% Inj (20ml) ONE (14:44)
--- NOTE | 2017-01-30 14:58 | PN ---
REFERRING PHYSICIAN: Dr. Fernandez. SUBJECTIVE: He is sitting up in a bed, feels better. Breathing is okay. No nausea. No vomiting. Abdominal pain is better. No leg pain or leg swelling. OBJECTIVE: GENERAL: In no acute distress. VITAL SIGNS: Temperature 98, heart rate 85, respiratory rate is 20, blood pressure 143/94, pulse ox 97% on room air. HEENT: Moist mucous membrane. Crowded airway. NECK: Supple. No JVD. LUNGS: Fair airflow with rhonchi. HEART: S1 and S2. ABDOMEN: Positive bowel sounds. . Mild epigastric tenderness. EXTREMITIES: There is edema. NEUROLOGIC: Awake, alert, and follows simple commands. MEDICATIONS: He is on Ambien 10 mg at bedtime, Ativan 1 mg q.6 hours, Cepacol lozenges q.2 hours p.r.n., DuoNeb q.6 hours p.r.n., banana bag 100 mL/hour, Lipitor 10 mg daily, Protonix 40 mg daily, Rocephin 1 g daily, Tylenol p.r.n., and Zofran p.r.n. basis. LABORATORY DATA: Shows hemoglobin 13.3, hematocrit 41.4, WBC 7.0 and platelet 216. Sodium 138, potassium 3.8, chloride 98, bicarbonate is 27, BUN 4, creatinine 0.7, glucose 89, calcium is 9.0, AST 193, ALT 130, alk phos is 68 and albumin is 4.0. IMPRESSION AND PLAN: Alcohol abuse with gastritis, esophagitis, gastroesophageal reflux disease, may have a component of sleep apnea syndrome, cough probably related to his gastroesophageal reflux disease, seen by GI, schedule for endoscopy, continue gastric prophylaxis, SCDs to lower extremities, fall precautions, continue p.r.n. Ativan. Thank you and we will follow with you. Lloyd Varela MD
[2017-01-30 15:15] VITALS: O2SAT 99
[2017-01-30] MEDS: Benzocaine/Menthol (Cepacol) Lozenge MT PRN (21:54)
[2017-01-30] MEDS: Sodium Chloride 0.9% 1,000 ML IV SCH (22:58)
[2017-01-31 01:17] VITALS: RESP 20
--- NOTE | 2017-01-31 02:49 | PN ---
DATE: SUBJECTIVE: The patient is a 46-year-old male. The patient is seen and examined at the bedside. No fever, comfortable. I saw him in the morning, he was n.p.o. for procedure. Abdominal pain is better. No shortness of breath. No nausea, vomiting or diarrhea. No swelling of the leg. No fever, no chills, no headache and no dizziness PHYSICAL EXAMINATION VITAL SIGNS: Temperature 98, heart rate 85, respiratory rate 20, and blood pressure 143/94, and pulse oximetry 97% on room air. HEENT: Head is normocephalic and atraumatic. Eyes; PERRLA. Extraocular muscles are intact. Conjunctivae are clear. Nose is patent. Mucous membranes are moist. NECK: Supple. No carotid bruits. No JVD or thyromegaly. Lungs: Fair airflow with few rhonchi. HEART: S1 and S2 positive. ABDOMEN: Bowel sounds positive. No organomegaly. Mild epigastric tenderness. EXTREMITIES: No edema. No cyanosis. NEUROLOGIC: The patient is awake and alert. Follows simple commands. MEDICATIONS: Ambien, Ativan, Cepacol lozenges, DuoNeb, banana bag, Lipitor, Protonix, Rocephin, and Zofran. LABORATORY DATA: Hemoglobin 13.3, hematocrit 41.4, white blood cells 7, and platelets 216. Sodium 113, potassium 3.8, BUN 4, creatinine 0.7. AST 193, ALT 130, and alkaline phosphatase 68. ASSESSMENT AND PLAN: Mr. Dante Cook is a 46-year-old male with multiple medical problems, gastritis, esophagitis, gastroesophageal reflux disease, alcohol abuse, sleep apnea syndrome. According to dr senior . the patient coughing is due to , gastroesophageal reflux disease, history of throat pain, getting better, coughing is better, gastric prophylaxis, SCDs to lower extremities, fall precautions, seizure precautions, getting tapering dose of Ativan. The patient today went for esophagogastroduodenoscopy with biopsy. CT shows hiatal hernia, duodenitis, rule out H. pylori, biopsy done, results are pending. GI and DVT prophylaxis. Repeat labs. We will follow up. Yen Fernandez MD MTDD
[2017-01-31] MEDS: Sodium Chloride 0.9% 1,000 ML IV SCH (06:27)
[2017-01-31 08:33] VITALS: BP 120/82; PULSE 59; TEMP 98.3
--- NOTE | 2017-01-31 08:47 | US ---
HISTORY: Abnormal liver function tests COMPARISON: None. TECHNIQUE: Sonographic evaluation of the abdomen. FINDINGS: LIVER: Measures 16.0 cm. There is diffuse increased echogenicity of the liver parenchyma. No mass. No intrahepatic bile duct dilatation. GALLBLADDER: Unremarkable. No gallstones. COMMON BILE DUCT: Measures 4.7 mm. No stones. No dilatation. PANCREAS: Unremarkable as visualized. No mass. No ductal dilatation. RIGHT KIDNEY: Measures 10.7cm. Normal echogenicity. No calculus, mass, or hydronephrosis. LEFT KIDNEY: Measures 10.9cm. Normal echogenicity. No calculus, mass, or hydronephrosis. SPLEEN: Normal in size and contour. No mass. AORTA: No aneurysmal dilatation. IVC: Unremarkable. OTHER FINDINGS: None. IMPRESSION: Diffuse increased echogenicity in the liver may reflect hepatic steatosis however parenchymal infectious/ inflammatory etiologies cannot be entirely excluded. Clinical and laboratory correlation is advised. No cholelithiasis or biliary dilatation.
[2017-01-31] MEDS: cefTRIAXone 1 gm 1 GM/100 ML BAG IVPB SCH (09:36)
--- NOTE | 2017-01-31 12:49 | CP.PCM.PN ---
<Candace Holliday - Last Filed: 01/31/17 12:45> Subjective - Date & Time of Evaluation Date of Evaluation: 01/31/17 Time of Evaluation: 09:50 - Subjective Subjective: Seen and examined at the bedside earlier today, the chart was reviewed. No acute overnight events reported. Patient denies any hematemesis, cough improving, no shortness of breath or chest pain. Denies fever or chills. No complaints of diarrhea. Status post endoscopy found to have chronic gastritis, and LA grade A esophagitis. Objective - Vital Signs/Intake and Output Vital Signs (last 24 hours): Temp Pulse Resp BP Pulse Ox 98.3 F 59 L 20 120/82 99 01/31/17 08:00 01/31/17 08:00 01/31/17 08:00 01/31/17 08:00 01/31/17 08:00 Intake and Output: 01/31/17 01/31/17 06:59 18:59 Intake Total 3660 Balance 3660 - Medications Medications: Current Medications Albuterol/Ipratropium (Duoneb 3 Mg/0.5 Mg (3 Ml) Ud) 3 ml IH [id number] PRN PRN Reason: Shortness of Breath Last Admin: 01/28/17 08:58 Dose: 3 ml Atorvastatin Calcium (Lipitor) 10 mg PO DIN [facility] Last Admin: 01/30/17 16:57 Dose: 10 mg Benzocaine/Menthol (Cepacol Sore Throat) 1 clover MT Q2H PRN PRN Reason: Sore Throat Last Admin: 01/30/17 21:54 Dose: 1 clover Famotidine (Pepcid) 40 mg PO HS [facility] Last Admin: 01/30/17 22:58 Dose: 40 mg Ceftriaxone Sodium (Rocephin 1 Gram Ivpb) 1 gm in 100 mls @ 100 mls/hr IVPB DAILY [facility] PRN Reason: Protocol Last Admin: 01/31/17 09:36 Dose: 100 mls/hr Lorazepam (Ativan) 0.5 mg IVP Q8 [facility] PRN Reason: Protocol Last Admin: 01/31/17 06:27 Dose: 0.5 mg Pantoprazole Sodium (Protonix Ec Tab) 40 mg PO 0600 [facility] Thiamine HCl (Vitamin B1 Tab) 100 mg PO DAILY [facility] Last Admin: 01/31/17 09:37 Dose: 100 mg Zolpidem Tartrate (Ambien) 10 mg PO HS PRN; Protocol PRN Reason: Insomnia Last Admin: 01/30/17 21:54 Dose: 10 mg - Labs Labs: 01/30/17 07:10 01/30/17 07:10 PT 10.2 Seconds (9.9-11.8) 01/27/17 19:30 INR 0.94 (0.93-1.08) 01/27/17 19:30 APTT 24.9 Seconds (23.7-30.8) 01/27/17 19:30 - Constitutional Appears: No Acute Distress - Head Exam Head Exam: NORMOCEPHALIC - Eye Exam Eye Exam: Normal appearance. absent: Scleral icterus - ENT Exam ENT Exam: Mucous Membranes Moist - Neck Exam Neck Exam: Normal Inspection - Respiratory Exam Respiratory Exam: Clear to Ausculation Bilateral, NORMAL BREATHING PATTERN. absent: Respiratory Distress - Cardiovascular Exam Cardiovascular Exam: +S1, +S2 - GI/Abdominal Exam GI & Abdominal Exam: Soft, Normal Bowel Sounds. absent: Guarding, Tenderness, Rebound - Extremities Exam Extremities Exam: Normal Capillary Refill. absent: Pedal Edema - Neurological Exam Neurological Exam: Alert, Awake, Oriented x3 Assessment and Plan - Assessment and Plan (Free Text) Assessment: ASSESSMENT: Chronic Gastritis/LA Grade A Esophagtitis Transeminitis, differential alcoholic hepatitis, medication induced, abd. US negative for GB stone, CBD 4/7 mm, ? hepatic steatosis Chest Pain Coughing Ethanol Abuse, Alcohol Quant >200 PLAN: advance diet to soft diet continue GI prophylaxis monitor H/H, overt GI bleeding spoke to patient regarding alcohol cessation trend LFT on discharge pt. to FU w/ PCP, Dr. Kyle. Seen and discussed with Dr. Welsh. <Branden Welsh V - Last Filed: 01/31/17 22:47> Objective - Vital Signs/Intake and Output Vital Signs (last 24 hours): Temp Pulse Resp BP Pulse Ox 98.3 F 59 L 20 120/82 99 01/31/17 08:00 01/31/17 08:00 01/31/17 08:00 01/31/17 08:00 01/31/17 08:00 - Labs Labs: 01/30/17 07:10 01/30/17 07:10 PT 10.2 Seconds (9.9-11.8) 01/27/17 19:30 INR 0.94 (0.93-1.08) 01/27/17 19:30 APTT 24.9 Seconds (23.7-30.8) 01/27/17 19:30 Attending/Attestation - Attestation I have personally seen and examined this patient.: Yes I have fully participated in the care of the patient.: Yes I have reviewed all pertinent clinical information, including history, physical exam and plan: Yes Notes (Text): This is an addendum to GI progress report dictated by Candace Holliday APN.The patient was seen and examined earlier. Medical records, lab studies, imagings were reviewed. Last 24 hours events reviewed. Agreed with the above treatment plan as outlined in Candace Holliday APN's notes the with the addition of the following no further episodes of hematemesis Tolerating the diet DC the IVF and wants to diet *Short course of PPI to H2B advised to avoid alcohol based follow up with the primary physician 01/31/17 22:45
--- NOTE | 2017-01-31 13:39 | PN ---
DATE: 01/31/2017 LOCATION: The patient is in room 570, bed 1. REASON FOR CONSULTATION: Chest pain after vomiting, history of ethanol abuse, alcohol intoxication. SUBJECTIVE: The patient lying flat in bed without chest pain, shortness of breath, or palpitation. He says he has slight cough, but the prior pain which he had with vomiting and later on he complained pain with the cough, that has improved. He does not have anymore chest pain. The patient lying comfortably in bed. PHYSICAL EXAMINATION: VITAL SIGNS: On examination, blood pressure 120/82, respirations 20, pulse 59, temperature 98.3. HEENT: Normocephalic. Eyes: Pupils normal. Conjunctivae normal. Nose and throat normal. NECK: JVP low. Carotids equal. THORAX: AP diameter normal. LUNGS: Clear. CARDIOVASCULAR: S1 and S2. ABDOMEN: Soft, normal bowel sounds. EXTREMITIES: No clubbing, no cyanosis. LABORATORY DATA: WBC 7.0, hemoglobin 13.3, hematocrit 41.4, platelets 216. Sodium 138, potassium 3.8, BUN 4, creatinine 0.7. AST 193, ALT 130. Troponin less than 0.01. Total protein 6.9, albumin 4.0, globulin 2.9. DIAGNOSES: Chest pain, atypical, while associated with after vomiting and then later on with the cough, now it is relieved; ethanol abuse; alcohol intoxication. PLAN: The patient's chest pain is atypical. The patient already had echo and the patient will do nuclear stress test as outpatient. In the meantime, the patient will continue present therapy. He is on Rocephin 1 g IV daily, Lipitor 10 mg daily, DuoNeb hand nebulizer therapy, thiamine 100 mg daily. We will follow with you. Lloyd Mtz MD
[2017-01-31] MEDS ORDERED: Influenza Vaccine 60 mcg/0.5 mL SYR (4YR UP) IM ONE (14:07)
[2017-02-01] MEDS ORDERED: Pantoprazole 40 mg EC Tab PO SCH (06:00)
== END 2017-01-31 15:57 | disposition home or self-care (01) ==
LOC: ED 19:13 → ERH 22:00 → 2RSO 01-28 00:40 → OBSVTOIN 01-28 14:27 → INTOOBSV 01-28 14:27 → 5RSO 01-28 18:42
PROVIDERS: ADMIT Internal Medicine; ATTEND Internal Medicine
PROC: 0DB68ZX Excision of Stomach, Via Natural or Artificial Opening Endoscopic, Diagnostic (ICD-10-PCS; principal; 2017-01-30 15:00)
PROC: 3E0234Z Introduction of Serum, Toxoid and Vaccine into Muscle, Percutaneous Approach (ICD-10-PCS; 2017-01-31)
DX: F10.239 Alcohol dependence with withdrawal, unspecified (principal); K76.0 Fatty (change of) liver, not elsewhere classified; E83.39 Other disorders of phosphorus metabolism; K70.10 Alcoholic hepatitis without ascites; E78.00 Pure hypercholesterolemia, unspecified; R73.9 Hyperglycemia, unspecified; K21.0 Gastro-esophageal reflux disease with esophagitis; K29.50 Unspecified chronic gastritis without bleeding; G47.30 Sleep apnea, unspecified; Y90.8 Blood alcohol level of 240 mg/100 ml or more; K44.9 Diaphragmatic hernia without obstruction or gangrene; R40.2412 Glasgow coma scale score 13-15, at arrival to emergency department; M54.9 Dorsalgia, unspecified; R07.89 Other chest pain; K29.80 Duodenitis without bleeding; R05 Cough; J02.9 Acute pharyngitis, unspecified; Z23 Encounter for immunization
CPT/HCPCS: 36415; 71010; 76700; 80053; 80061; 80320; 82550; 83036; 83615; 83690; 83735; 84100; 84443; 84484; 85025; 85610; 85730; 88305; 88342; 90471; 90674; 93005; 93306; 94640; 96365; 96366; 96375; 99285; C9113; G0378; J0696; J2060; J2270; J2405; J2704; J3411; J7040; J7070